=== PATIENT | male | born 1955 | race Caucasian/White ===

== ENCOUNTER 2018-05-05 03:17 | Inpatient (IN) | payer OTHER ==
[2018-05-05] MEDS ORDERED: ONDANSETRON 4 MG INJ IV (04:30)
[2018-05-05] MEDS ORDERED: NACL 0.9% 3 ML SYG IV (04:30)
[2018-05-05 06:02] LABS: ADD MAN DIFF? NO
[2018-05-05 06:03] LABS: WHITE BLOOD COUNT 4.8 10^3/ul (4.8-10.8)
[2018-05-05 06:03] LABS: BASOPHILS % 0.2 % (0.0-2.0); EOSINOPHILS # 0.2 10^3/ul (0.0-0.5); EOSINOPHILS % 4.5 % (0.0-7.0); HEMATOCRIT 33.9 % (42.0-52.0); HEMOGLOBIN 11.2 g/dl (14.0-18.0); LYMPHOCYTES # 1.3 10^3/ul (0.8-2.9); LYMPHOCYTES % 27.5 % (15.0-51.0); MEAN CORPUSCULAR HEMOGLOBIN 30.9 pg (29.0-33.0); MEAN CORPUSCULAR VOLUME 93.4 fl (82.0-101.0); MONOCYTE # 0.5 10^3/ul (0.3-0.9); MONOCYTES % 9.9 % (0.0-11.0); NEUTROPHIL # 2.8 10^3/ul (1.6-7.5); NEUTROPHILS % 57.7 % (39.0-77.0); PLATELET COUNT 165 10^3/UL (140-415); RED BLOOD COUNT 3.63 10^6/ul (4.70-6.10); RED CELL DISTRIBUTION WIDTH 13.7 % (11.5-14.5)
[2018-05-05 06:29] LABS: CHOLESTEROL 119 mg/dl (100-200)
[2018-05-05 06:29] LABS: CHOL/HDL RATIO 4.5 RATIO; HDL CHOLESTEROL 26 mg/dl (30-78); LDL CHOLESTEROL,CALCULATED 73 mg/dl; TRIGLYCERIDES 101 mg/dl (0-149)
[2018-05-05 06:32] LABS: ALANINE AMINOTRANSFERASE 19 IU/L (13-69); ALBUMIN 3.5 g/dl (3.3-4.9); ALBUMIN/GLOBULIN RATIO 1.12; ALKALINE PHOSPHATASE 89 IU/L (42-121); ANION GAP 12 (5-13); ASPARTATE AMINO TRANSFERASE 21 IU/L (15-46); BLOOD UREA NITROGEN 14 mg/dl (7-20); CALCIUM 9.2 mg/dl (8.4-10.2); CARBON DIOXIDE 25 mmol/L (21-31); CHLORIDE 106 mmol/L (97-110); CREATININE 1.21 mg/dl (0.61-1.24); Estimated GFR > 60 mL/min (>60); GLUCOSE 95 mg/dl (70-220); MAGNESIUM 1.9 mg/dl (1.7-2.5); POTASSIUM 3.5 mmol/L (3.5-5.1); SODIUM 143 mmol/L (135-144); TOTAL PROTEIN 6.6 g/dl (6.1-8.1)
[2018-05-05 07:01] LABS: THYROID STIMULATING HORMONE 0.278 MIU/L (0.465-4.680)
[2018-05-05] MEDS ORDERED: hydrALAzine 20 MG INJ IV (09:00)
[2018-05-05] MEDS: LORAZEPAM 2 MG INJ IV ×2 (10:30→18:48)
[2018-05-05] MEDS: LANSOPRAZOLE 30 MG CAP PO (10:32)
[2018-05-05] MEDS: ASPIRIN 81 MG TAB PO (10:33)
[2018-05-05 12:06] LABS: FREE T4 (FREE THYROXINE) 1.33 ng/dl (0.78-2.44)
[2018-05-05] MEDS: ATORVASTATIN 40 MG TAB PO (21:00)
[2018-05-06 05:37] LABS: ADD MAN DIFF? NO
[2018-05-06 05:38] LABS: BASOPHILS % 0.4 % (0.0-2.0); EOSINOPHILS # 0.2 10^3/ul (0.0-0.5); EOSINOPHILS % 2.9 % (0.0-7.0); HEMOGLOBIN 11.7 g/dl (14.0-18.0); LYMPHOCYTES # 1.4 10^3/ul (0.8-2.9); LYMPHOCYTES % 26.6 % (15.0-51.0); MEAN CORPUSCULAR HEMOGLOBIN 30.7 pg (29.0-33.0); MEAN CORPUSCULAR HGB CONC 32.5 g/dl (32.0-37.0); MEAN CORPUSCULAR VOLUME 94.5 fl (82.0-101.0); MEAN PLATELET VOLUME 11.9 fl (7.4-10.4); MONOCYTE # 0.5 10^3/ul (0.3-0.9); MONOCYTES % 10.6 % (0.0-11.0); NEUTROPHILS % 59.1 % (39.0-77.0); PLATELET COUNT 163 10^3/UL (140-415); RED BLOOD COUNT 3.81 10^6/ul (4.70-6.10); RED CELL DISTRIBUTION WIDTH 13.5 % (11.5-14.5)
[2018-05-06 05:38] LABS: WHITE BLOOD COUNT 5.1 10^3/ul (4.8-10.8)
[2018-05-06] MEDS: LANSOPRAZOLE 30 MG CAP PO (06:24)
[2018-05-06 06:32] LABS: ANION GAP 10 (5-13); BLOOD UREA NITROGEN 17 mg/dl (7-20); CALCIUM 9.4 mg/dl (8.4-10.2); CARBON DIOXIDE 24 mmol/L (21-31); CHLORIDE 110 mmol/L (97-110); CREATININE 1.22 mg/dl (0.61-1.24); Estimated GFR > 60 mL/min (>60); GLUCOSE 124 mg/dl (70-220); SODIUM 144 mmol/L (135-144)
[2018-05-06 06:37] LABS: TROPONIN-I < 0.012 ng/ml (0.000-0.120)
[2018-05-06 06:38] LABS: PHOSPHORUS 3.8 mg/dl (2.5-4.9)
[2018-05-06 06:38] LABS: MAGNESIUM 2.1 mg/dl (1.7-2.5)
[2018-05-06] MEDS: ASPIRIN 81 MG TAB PO (08:29)
[2018-05-06] MEDS: ENOXAPARIN 40 MG/0.4 ML SYG SC (08:34)
[2018-05-06] MEDS: GABAPENTIN 300 MG CAP PO ×2 (12:03→20:28)
[2018-05-06] MEDS: LORAZEPAM 2 MG INJ IV (15:06)
[2018-05-06] MEDS: ACETAMINOPHEN 325 MG TAB PO (20:28)
[2018-05-06] MEDS: ATORVASTATIN 40 MG TAB PO (20:28)
[2018-05-06] MEDS: LABETALOL 200 MG TAB PO (20:29)
[2018-05-07] MEDS: LANSOPRAZOLE 30 MG CAP PO (05:59)
[2018-05-07 06:08] LABS: ADD MAN DIFF? NO
[2018-05-07 06:27] LABS: BASOPHILS % 0.4 % (0.0-2.0); EOSINOPHILS # 0.1 10^3/ul (0.0-0.5); EOSINOPHILS % 2.2 % (0.0-7.0); HEMATOCRIT 35.4 % (42.0-52.0); HEMOGLOBIN 11.8 g/dl (14.0-18.0); LYMPHOCYTES # 1.4 10^3/ul (0.8-2.9); LYMPHOCYTES % 28.9 % (15.0-51.0); MEAN CORPUSCULAR HEMOGLOBIN 31.3 pg (29.0-33.0); MEAN CORPUSCULAR HGB CONC 33.3 g/dl (32.0-37.0); MEAN CORPUSCULAR VOLUME 93.9 fl (82.0-101.0); MEAN PLATELET VOLUME 12.9 fl (7.4-10.4); MONOCYTE # 0.5 10^3/ul (0.3-0.9); MONOCYTES % 10.3 % (0.0-11.0); NEUTROPHIL # 2.9 10^3/ul (1.6-7.5); PLATELET COUNT 147 10^3/UL (140-415); RED BLOOD COUNT 3.77 10^6/ul (4.70-6.10); RED CELL DISTRIBUTION WIDTH 13.2 % (11.5-14.5)
[2018-05-07 06:27] LABS: WHITE BLOOD COUNT 4.9 10^3/ul (4.8-10.8)
[2018-05-07 06:55] LABS: PHOSPHORUS 3.2 mg/dl (2.5-4.9)
[2018-05-07 06:59] LABS: ANION GAP 10 (5-13); BLOOD UREA NITROGEN 19 mg/dl (7-20); CALCIUM 9.1 mg/dl (8.4-10.2); CARBON DIOXIDE 24 mmol/L (21-31); CHLORIDE 110 mmol/L (97-110); Estimated GFR > 60 mL/min (>60); GLUCOSE 185 mg/dl (70-220); POTASSIUM 3.7 mmol/L (3.5-5.1); SODIUM 144 mmol/L (135-144)
[2018-05-07] MEDS: ACETAMINOPHEN 325 MG TAB PO (08:21)
[2018-05-07] MEDS: ASPIRIN 81 MG TAB PO (08:21)
[2018-05-07] MEDS: GABAPENTIN 300 MG CAP PO ×3 (08:22→21:45)
[2018-05-07] MEDS: AMLODIPINE 10 MG TAB PO (08:22)
[2018-05-07] MEDS: LISINOPRIL 20 MG TAB PO (08:23)
[2018-05-07] MEDS: LABETALOL 200 MG TAB PO ×2 (08:23→21:45)
[2018-05-07] MEDS: CHLORTHALIDONE 25 MG TAB PO (08:24)
[2018-05-07] MEDS: ENOXAPARIN 40 MG/0.4 ML SYG SC (08:30)
[2018-05-07] MEDS ORDERED: BISACODYL (EC) 5 MG TAB PO (11:00)
[2018-05-07] MEDS ORDERED: BISACODYL 10 MG SUPP PR (11:00)
[2018-05-07 12:08] LABS: ADD UMIC NO; UR ASCORBIC ACID NEGATIVE (NEGATIVE); UR BILIRUBIN (Dip) NEGATIVE (NEGATIVE); UR BLOOD (Dip) NEGATIVE (NEGATIVE); UR CLARITY CLEAR (CLEAR); UR COLOR YELLOW (YELLOW); UR GLUCOSE (Dip) NEGATIVE (NEGATIVE); UR KETONES (Dip) NEGATIVE (NEGATIVE); UR LEUKOCYTE ESTERASE (Dip) NEGATIVE Leu/ul (NEGATIVE); UR NITRITE (Dip) NEGATIVE (NEGATIVE); UR SPECIFIC GRAVITY (Dip) 1.021 (1.003-1.030); UR TOTAL PROTEIN (Dip) NEGATIVE (NEGATIVE); UR UROBILINOGEN (Dip) 1+ mg/dL (NEGATIVE)
[2018-05-07] MEDS: HYDROCODONE/APAP (10/325) TAB PO ×2 (12:18→18:08)
[2018-05-07] MEDS: SENNA/DOCUSATE NA (8.6MG/50MG) TAB PO (12:18)
[2018-05-07 12:31] LABS: AMPHETAMINE/METHAMPHETAMINE Negative (NEGATIVE); BARBITURATES Negative (NEGATIVE); BENZODIAZEPINES Negative (NEGATIVE); CANNABINOIDS Negative (NEGATIVE); COCAINE Negative (NEGATIVE); OPIATES Negative (NEGATIVE)
[2018-05-07] MEDS: DOCUSATE SODIUM 100 MG CAP PO (21:45)
[2018-05-07] MEDS: LACTOBACILLUS RHAMNOSUS CAP PO (21:45)
[2018-05-07] MEDS: ATORVASTATIN 40 MG TAB PO (21:45)
[2018-05-08] MEDS: HYDROCODONE/APAP (10/325) TAB PO ×2 (04:01→12:12)
[2018-05-08] MEDS: SOD CHLORIDE 0.9% 100 ML (04:59)
[2018-05-08] MEDS: IODIXANOL LOCM 100 ML BTL (05:00)
[2018-05-08] MEDS: LANSOPRAZOLE 30 MG CAP PO (06:04)
[2018-05-08 06:10] LABS: ADD MAN DIFF? NO
[2018-05-08 06:18] LABS: WHITE BLOOD COUNT 5.9 10^3/ul (4.8-10.8)
[2018-05-08 06:18] LABS: BASOPHILS % 0.5 % (0.0-2.0); EOSINOPHILS # 0.2 10^3/ul (0.0-0.5); EOSINOPHILS % 3.7 % (0.0-7.0); HEMOGLOBIN 12.1 g/dl (14.0-18.0); LYMPHOCYTES # 1.8 10^3/ul (0.8-2.9); LYMPHOCYTES % 29.7 % (15.0-51.0); MEAN CORPUSCULAR HGB CONC 32.7 g/dl (32.0-37.0); MEAN CORPUSCULAR VOLUME 94.9 fl (82.0-101.0); MONOCYTE # 0.6 10^3/ul (0.3-0.9); MONOCYTES % 10.2 % (0.0-11.0); NEUTROPHIL # 3.3 10^3/ul (1.6-7.5); NEUTROPHILS % 55.7 % (39.0-77.0); PLATELET COUNT 158 10^3/UL (140-415); RED CELL DISTRIBUTION WIDTH 13.6 % (11.5-14.5)
[2018-05-08 07:36] LABS: MAGNESIUM 1.9 mg/dl (1.7-2.5)
[2018-05-08 07:49] LABS: ALANINE AMINOTRANSFERASE 18 IU/L (13-69); ALBUMIN 3.7 g/dl (3.3-4.9); ALBUMIN/GLOBULIN RATIO 1.19; ALKALINE PHOSPHATASE 85 IU/L (42-121); ANION GAP 13 (5-13); ASPARTATE AMINO TRANSFERASE 19 IU/L (15-46); BILIRUBIN,INDIRECT 0.7 mg/dl (0-1.1); BILIRUBIN,TOTAL 0.7 mg/dl (0.2-1.3); BLOOD UREA NITROGEN 19 mg/dl (7-20); CALCIUM 9.1 mg/dl (8.4-10.2); CARBON DIOXIDE 25 mmol/L (21-31); CHLORIDE 106 mmol/L (97-110); CREATININE 1.36 mg/dl (0.61-1.24); Estimated GFR 53 mL/min (>60); GLUCOSE 121 mg/dl (70-220); POTASSIUM 3.8 mmol/L (3.5-5.1); SODIUM 144 mmol/L (135-144); TOTAL PROTEIN 6.8 g/dl (6.1-8.1)
[2018-05-08 07:52] LABS: ERYTHROCYTE SEDIMENTATION RATE 19 mm/Hr (0-20)
[2018-05-08] MEDS: ASPIRIN 81 MG TAB PO (08:50)
[2018-05-08] MEDS: GABAPENTIN 300 MG CAP PO ×2 (08:50→12:12)
[2018-05-08] MEDS: LABETALOL 200 MG TAB PO (08:55)
[2018-05-08] MEDS: AMLODIPINE 10 MG TAB PO (08:56)
[2018-05-08] MEDS: CHLORTHALIDONE 25 MG TAB PO (08:56)
[2018-05-08] MEDS: SENNA/DOCUSATE NA (8.6MG/50MG) TAB PO (08:56)
[2018-05-08] MEDS: LISINOPRIL 20 MG TAB PO (08:56)
[2018-05-08] MEDS: ENOXAPARIN 40 MG/0.4 ML SYG SC (09:03)
[2018-05-08] MEDS: LACTOBACILLUS RHAMNOSUS CAP PO ×2 (09:04→12:14)
[2018-05-10 21:52] LABS: ACETYLCHOLINE RECEPTOR AB <0.30 nmol/L
== END 2018-05-08 17:15 | disposition home or self-care (01) | DRG 123 ==
LOC: 6WM 03:17
PROVIDERS: Family Medicine
DX: H49.20 Sixth [abducent] nerve palsy, unspecified eye (principal); I69.351 Hemiplegia and hemiparesis following cerebral infarction affecting right dominant side; E78.5 Hyperlipidemia, unspecified; E88.81 Metabolic syndrome and other insulin resistance; E66.9 Obesity, unspecified; Z68.35 Body mass index [BMI] 35.0-35.9, adult; I12.9 Hypertensive chronic kidney disease with stage 1 through stage 4 chronic kidney disease, or unspecified chronic kidney disease; N18.9 Chronic kidney disease, unspecified; D63.8 Anemia in other chronic diseases classified elsewhere; K43.2 Incisional hernia without obstruction or gangrene; G89.29 Other chronic pain
CPT/HCPCS: 70496; 70545; 70553; 74018; 80048; 80053; 80061; 80307; 81003; 83036; 83519; 83735; 84100; 84439; 84443; 84484; 85025; 85651; 87081; 92610; 93306; 93880; 97116; 97161; 97530